=== PATIENT | female | born 1945 | race Caucasian/White ===

== ENCOUNTER → 2019-03-27 | Outpatient (CLI) | payer MEDICARE ==
[~2019-03-27] MED LIST: CARVEDILOL12.5 MG PO; CRESTOR10 MG PO; PLAVIX75 MG PO; REGADENOSON 0.4 MG/5 ML SYR IV ONE
== END ==
LOC: NM 09:32
PROVIDERS: ATTEND Internal Medicine Cardiovascular Disease
DX: I25.10 Atherosclerotic heart disease of native coronary artery without angina pectoris (principal)
CPT/HCPCS: 78452; 93017; A9502; J2785

== ENCOUNTER → 2019-09-13 | Outpatient (CLI) | payer MEDICARE | LOC: NM 07:09 | PROVIDERS: ATTEND Internal Medicine Cardiovascular Disease | DX: R07.9 Chest pain, unspecified (principal); I25.10 Atherosclerotic heart disease of native coronary artery without angina pectoris | CPT/HCPCS: 78452; 93017; A9502; J2785 ==